=== PATIENT | female | born 1995 | race Caucasian/White ===

== ENCOUNTER 2021-12-12 19:01 | Emergency (ER) | payer MEDICAID, OTHER ==
[~2021-12-12] VITALS: Ht 160 cm; Wt 73.0 kg
[2021-12-12] MEDS ORDERED: LIDOCAINE HCL/PF 1% 10 MG/ML 5ML VIAL INFIL ONE (20:00)
[2021-12-12] MEDS ORDERED: TETANUS, DIPHTHERIA, PERTUSSIS VAC/PF 0.5ML (>10YR OLD) IM ONE (20:00)
[2021-12-12] MEDS ORDERED: LIDOCAINE HCL/EPINEPHRINE 1%-EPI 1:100,000 20 ML VIAL INFIL ONE (20:00)
[2021-12-12] MEDS ORDERED: OLANZAPINE 10 MG/VIAL IM ONE (20:00)
[2021-12-12] MEDS ORDERED: DIPHENHYDRAMINE 50MG/ML VIAL IM ONE (20:00)
[2021-12-12] MEDS ORDERED: LORAZEPAM 2MG/ML CPJ IM ONE (20:00)
[2021-12-12] MEDS ORDERED: BACITRACIN ZINC OINT UDPKT TOP ONE (20:00)
[2021-12-12 20:32] LABS: BASOPHILS % 0.3 % (0.0-2.0); EOSINOPHILS % 2.3 % (0.0-5.0); HEMOGLOBIN. 15.8 g/dL (12.0-16.0); LYMPHOCYTES % 17.4 % (20.0-50.0); MEAN CORPUSCULAR HEMOGLOBIN 30.9 pg (28.0-32.0); MEAN CORPUSCULAR VOLUME 91.9 fL (81.0-99.0); MEAN PLATELET VOLUME 9.3 fl (7.4-10.4); MONOCYTES % 10.7 % (2.0-8.0); NEUTROPHILS % 69.3 % (40.0-76.0); PLATELET 239 x1000/uL (130-400); RED BLOOD CELL COUNT 5.12 mill/uL (4.2-5.4); RED CELL DISTRIBUTION WIDTH 13.4 % (11.6-14.6)
[2021-12-12 20:40] LABS: CHLORIDE 104 mEq/L (98-107)
[2021-12-12 20:48] LABS: ETHANOL BLOOD < 10 mg/dL
[2021-12-12 20:51] LABS: HCG SCREEN NEGATIVE
[2021-12-13] MEDS ORDERED: OLANZAPINE 10 MG/VIAL IM ONE (01:45)
[2021-12-13] MEDS: OLANZAPINE 5MG TABLET PO SCH ×2 (11:00→17:32)
[2021-12-13 18:23] LABS: CLARITY URINE CLOUDY (CLEAR); COLOR URINE DARK YELLOW (YELLOW); KETONES URINE 3+ (NEGATIVE); LEUKOCYTE ESTERASE URINE 1+ (NEGATIVE); NITRITE URINE NEGATIVE (NEGATIVE); OCCULT BLOOD URINE 3+ (NEGATIVE); PH URINE 5.5 (4.5-8.0); PROTEIN URINE 2+ (NEGATIVE); SPECIFIC GRAVITY URINE 1.039 (1.005-1.030)
[2021-12-13 18:38] LABS: *BARBITURATES SCREEN URINE NEGATIVE (NEGATIVE); *BENZODIAZEPINES SCREEN URINE NEGATIVE (NEGATIVE); METHADONE URINE SCREEN NEGATIVE (NEGATIVE); OPIATES URINE SCREEN NEGATIVE (NEGATIVE); PHENCYCLIDINE URINE SCREEN NEGATIVE (NEGATIVE)
[2021-12-13 18:58] LABS: *AMPHETAMINES SCREEN URINE PRESUMTIVE POSITIVE (NEGATIVE); *COCAINE SCREEN URINE PRESUMTIVE POSITIVE (NEGATIVE); CANNABINOID URINE SCREEN PRESUMTIVE POSITIVE (NEGATIVE)
[2021-12-14] MEDS: OLANZAPINE 5MG TABLET PO SCH (09:00)
[2021-12-14] MEDS ORDERED: BACITRACIN ZINC OINT UDPKT TOP ONE (11:15)
[2021-12-14] MEDS ORDERED: NITROFURANTOIN 100MG M/M CAPSULE PO ONE (12:15)
[2021-12-14 15:24] VITALS: BP 111/70
== END 2021-12-14 15:41 | disposition short-term general hospital (02) ==
LOC: ER 19:01
DX: R45.851 Suicidal ideations (principal); Z98.890 Other specified postprocedural states; Z20.822 Contact with and (suspected) exposure to COVID-19
CPT/HCPCS: 12001; 36415; 80053; 80307; 80320; 80329; 84703; 85025; 90715; 96372; 99285; C9803; J1200; J2060; J3490; U0003; U0005; Z7610; G0480